=== PATIENT | male | born 1995 | race Hispanic/Latino ===

== ENCOUNTER 2020-11-30 17:46 | Emergency (ER) | payer SELFPAY ==
[2020-11-30] MEDS ORDERED: CLINDAMYCIN HCL 150 MG CAP ONE (18:02)
[2020-11-30] MEDS ORDERED: ACETAMINOPHEN-CODEINE 300/30MG TAB ONE (18:03)
== END 2020-11-30 18:36 | disposition home or self-care (01) ==
LOC: EDH 17:46
DX: L73.9 Follicular disorder, unspecified (principal)
CPT/HCPCS: 82948